=== PATIENT | female | born 1985 | race Caucasian/White ===

== ENCOUNTER 2017-09-04 21:30 | Observation (INO) | payer MEDICAID ==
[~2017-09-04] VITALS: Ht 152.4 cm; Wt 72.6 kg
[2017-09-04] MEDS ORDERED: PNV1TABL5 PO (22:27)
[2017-09-04] MEDS ORDERED: OSC500 PO (22:28)
[2017-09-04 22:32] VITALS: BP 117/76
== END 2017-09-05 00:10 | disposition home or self-care (01) ==
LOC: MLD 21:30
PROVIDERS: ADMIT Obstetrics & Gynecology; ATTEND Obstetrics & Gynecology
DX: O46.92 Antepartum hemorrhage, unspecified, second trimester (principal); Z3A.20 20 weeks gestation of pregnancy
CPT/HCPCS: 76805; 81000; G0378; Q0092

== ENCOUNTER 2018-07-12 12:11 | Emergency (ER) | payer MEDICAID ==
[~2018-07-12] VITALS: Ht 149.9 cm; Wt 108.9 kg
[~2018-07-12 12:11] MED LIST: OSC500 PO; PNV1TABL5 PO
[2018-07-12 12:28] VITALS: BP 128/73
--- NOTE | 2018-07-12 14:39 | NUR ---
PATIENT AMBULATED TO ER CHAIR B.
--- NOTE | 2018-07-12 14:45 | NUR ---
PT IS A 33 Y/O FEMALE WHO PRESENTS TO THE ED C/O L ARM PAIN AND FACIAL PAIN. PT DENIES ANY INJURY/TX BUT REPORTS PAIN X2 DAYS AGO. PT REPORTS 6/10 ACHING L ARM PAIN, NO OBVIOUS TRAUMA/DEFORMITY, FULL ROM, CMS INTACT. PT DENIES CP, SOB, N/V/D. PT AWAKE AND ALERT, RR EVEN/UNLABORED. PT REPOSITIONED FOR COMFORT, SITTING IN CHAIR. ER PROVIDER NOTIFIED. WILL CONTINUE TO MONITOR. PMH: NONE RT: NONE
[2018-07-12] MEDS ORDERED: KETOROLAC 30 MG/ML VIAL IM ONE (15:15)
[2018-07-12] MEDS ORDERED: METOCLOPRAMIDE 10 MG TAB PO ONE (15:15)
[2018-07-12 16:35] VITALS: BP 119/82
--- NOTE | 2018-07-12 16:35 | NUR ---
Patient discharged with v/s stable. Written and verbal after care instructions given and explained. Patient alert, oriented and verbalized understanding of instructions. Ambulatory with steady gait. All questions addressed prior to discharge. ID band removed. Patient advised to follow up with PMD. Rx of IBUPROFEN 600MG AND FLEXERIL 10MG given. Patient educated on indication of medication including possible reaction and side effects. Opportunity to ask questions provided and answered.
== END 2018-07-12 16:35 | disposition home or self-care (01) ==
LOC: MED 12:11
DX: R51 Headache (principal); M79.602 Pain in left arm; L56.8 Other specified acute skin changes due to ultraviolet radiation
CPT/HCPCS: 96372; 99283; J1885; J8597; Q0163

== ENCOUNTER 2021-05-21 09:10 | Emergency (ER) | payer MEDICAID ==
[~2021-05-21] VITALS: Ht 149.9 cm; Wt 115.2 kg
[2021-05-21 09:26] VITALS: BP 154/91
[2021-05-21] MEDS ORDERED: HYDROcodone/APAP 5/325 MG 1 TAB TAB PO ONE (10:05)
--- NOTE | 2021-05-21 10:52 | NUR ---
PT AMBULATED TO CHAIR C WITH STEADY GATE
--- NOTE | 2021-05-21 10:52 | NUR ---
PT'S LEFT KNEE AND ANKLE WRAPPED WITH 4" AND 3" DELBERT WARPS. CMS WNL
--- NOTE | 2021-05-21 10:54 | NUR ---
36 y/o female states she stepped wrong and fell on left ankle that started 40 minutes prior to arrival. site appears reddened, some swelling, no visible deformity. pt is able to ambulate, cap refill <3. no loc, syncope, head/neck injury. pmh: denies nka med: ibuprofen 400mg prior to arrival
[2021-05-21 11:06] VITALS: BP 154/91
--- NOTE | 2021-05-21 11:06 | NUR ---
Patient discharged with v/s stable. Written and verbal after care instructions given and explained. Patient alert, oriented and verbalized understanding of instructions. Ambulatory with steady gait. All questions addressed prior to discharge. ID band removed. Patient advised to follow up with PMD. Opportunity to ask questions provided and answered.
== END 2021-05-21 11:06 | disposition home or self-care (01) ==
LOC: MED 09:10
DX: S93.402A Sprain of unspecified ligament of left ankle, initial encounter (principal); S80.02XA Contusion of left knee, initial encounter; Z79.899 Other long term (current) drug therapy; Z98.890 Other specified postprocedural states; W19.XXXA Unspecified fall, initial encounter; Y93.89 Activity, other specified; Y92.89 Other specified places as the place of occurrence of the external cause; Y99.8 Other external cause status
CPT/HCPCS: 73560; 73610; 73630; 99284